=== PATIENT | female | born 1985 | race Caucasian/White ===

== ENCOUNTER → 2017-11-08 | Outpatient (REF) | payer SELFPAY ==
[2017-11-08 14:04] LABS: HEMATOCRIT 38.2 % (36.0-47.0); HEMOGLOBIN 12.7 g/dl (12.0-15.5); MEAN CORPUSCULAR HEMOGLOBIN 29.2 pg (27.0-33.0); MEAN CORPUSCULAR HGB CONC 33.2 g/dl (32.0-36.5); MEAN CORPUSCULAR VOLUME 87.8 fl (80.0-96.0); PLATELET COUNT, AUTOMATED 239 10^3/uL (150-450); RED BLOOD COUNT 4.35 10^6/uL (4.00-5.40); RED CELL DISTRIBUTION WIDTH 13.2 % (11.5-14.5); WHITE BLOOD COUNT 7.3 10^3/uL (4.0-10.0)
[2017-11-08 14:45] LABS: HCG, SERUM QUANTITATIVE 83172 MIU/ML
[2017-11-08 14:47] LABS: RUBELLA IgG QUALITATIVE IMMUNE (IMMUNE)
[2017-11-08 14:48] LABS: HBsAg Prenatal NEGATIVE (NEGATIVE)
[2017-11-08 15:16] LABS: HIV 1&2 SCREEN CENTAUR NEGATIVE (NEGATIVE)
== END ==
LOC: M LAB REF 13:41
DX: O36.80X0 Pregnancy with inconclusive fetal viability, not applicable or unspecified (principal); Z3A.00 Weeks of gestation of pregnancy not specified

== ENCOUNTER → 2017-12-20 | Outpatient (REF) | payer SELFPAY ==
[2017-12-20 15:29] LABS: CHLAMYDIA DNA AMPLIFICATION NEGATIVE (NEGATIVE); GC DNA AMPLIFICATION NEGATIVE (NEGATIVE)
== END ==
LOC: M LAB REF 13:00
DX: Z34.82 Encounter for supervision of other normal pregnancy, second trimester (principal)

== ENCOUNTER → 2018-05-20 | Outpatient (REF) | payer SELFPAY | LOC: M LAB REF 13:42 | DX: Z34.83 Encounter for supervision of other normal pregnancy, third trimester (principal); Z3A.00 Weeks of gestation of pregnancy not specified ==

== ENCOUNTER → 2019-08-11 | Outpatient (REF) | payer SELFPAY | LOC: M LAB REF 19:59 | PROVIDERS: ATTEND Orthopaedic Surgery | DX: L72.11 Pilar cyst (principal) ==

== ENCOUNTER → 2019-12-24 | Outpatient (REF) | payer SELFPAY ==
[2019-12-24 18:44] LABS: HEMATOCRIT 36.5 % (36.0-47.0); HEMOGLOBIN 11.8 g/dl (12.0-15.5); MEAN CORPUSCULAR HEMOGLOBIN 28.6 pg (27.0-33.0); MEAN CORPUSCULAR HGB CONC 32.3 g/dl (32.0-36.5); MEAN CORPUSCULAR VOLUME 88.4 fl (80.0-96.0); PLATELET COUNT, AUTOMATED 263 10^3/uL (150-450); RED BLOOD COUNT 4.13 10^6/uL (4.00-5.40); WHITE BLOOD COUNT 5.8 10^3/uL (4.0-10.0)
[2019-12-24 19:41] LABS: HCG, SERUM QUANTITATIVE 7728 MIU/ML
[2019-12-25 17:25] LABS: HEPATITIS B SURFACE ANTIGEN NEGATIVE (NEGATIVE)
[2019-12-25 17:53] LABS: HEPATITIS C VIRUS ABY INDEX 0.3 INDEX (<0.8)
[2019-12-25 17:54] LABS: HIV 1&2 SCREEN CENTAUR NEGATIVE (NEGATIVE)
== END ==
LOC: M LAB REF 16:17
PROVIDERS: ATTEND Obstetrics & Gynecology
DX: O36.80X0 Pregnancy with inconclusive fetal viability, not applicable or unspecified (principal)

== ENCOUNTER → 2019-12-31 | Outpatient (REF) | payer SELFPAY | LOC: M LAB REF 16:13 | PROVIDERS: ATTEND Obstetrics & Gynecology | DX: O02.1 Missed abortion (principal) ==